=== PATIENT | male | born 1965 | race Hispanic/Latino ===

== ENCOUNTER → 2023-07-26 | Outpatient (CLI) | payer OTHER | END | disposition home or self-care (01) | LOC: RAH 11:19 | PROVIDERS: ATTEND Physician Assistant | DX: S46.012A Strain of muscle(s) and tendon(s) of the rotator cuff of left shoulder, initial encounter (principal); M19.012 Primary osteoarthritis, left shoulder; X58.XXXA Exposure to other specified factors, initial encounter; Y93.89 Activity, other specified; Y92.89 Other specified places as the place of occurrence of the external cause; Y99.8 Other external cause status | CPT/HCPCS: 73221 ==

== ENCOUNTER 2023-11-08 06:06 | Day surgery (SDC) | payer OTHER, MEDICARE ==
[~2023-11-08] VITALS: Ht 182.9 cm; Wt 84.8 kg
[2023-11-08] VITALS (11 sets, daily range): BP systolic 131–159; BP diastolic 84–92; PULSE 76–89; RESP 14–16
[2023-11-08] MEDS: 0.9%NACL 1000ML 1,000 ML IV ONE (06:33)
[2023-11-08] MEDS ORDERED: DULA0.75 SQ (06:56)
[2023-11-08] MEDS ORDERED: DICY20TA3 PO (06:56)
[2023-11-08] MEDS ORDERED: METF-527 PO (06:56)
[2023-11-08] MEDS ORDERED: INSLAN SQ (06:56)
[2023-11-08] MEDS ORDERED: IBUP-2071 PO (06:56)
[2023-11-08] MEDS ORDERED: ATOR40TA69 PO (06:56)
[2023-11-08] MEDS ORDERED: EMPA25TA PO (06:56)
[2023-11-08] MEDS ORDERED: LIDOCAINE HCL 1% 20 ML VIAL ONE (07:07)
[2023-11-08] MEDS ORDERED: PROPOFOL 10 MG/ML 20ML VIAL IV ONE ×3 (07:07→07:29)
== END 2023-11-08 08:45 | disposition home or self-care (01) ==
LOC: ENDO 06:06 → DAH 06:06 → ENDO 08:45
PROVIDERS: ATTEND Internal Medicine Gastroenterology
DX: R93.3 Abnormal findings on diagnostic imaging of other parts of digestive tract (principal); K85.90 Acute pancreatitis without necrosis or infection, unspecified; K80.20 Calculus of gallbladder without cholecystitis without obstruction; K29.50 Unspecified chronic gastritis without bleeding; R93.5 Abnormal findings on diagnostic imaging of other abdominal regions, including retroperitoneum; K86.9 Disease of pancreas, unspecified; I10 Essential (primary) hypertension; E78.00 Pure hypercholesterolemia, unspecified; F41.9 Anxiety disorder, unspecified; F32.A Depression, unspecified; E11.40 Type 2 diabetes mellitus with diabetic neuropathy, unspecified; K57.30 Diverticulosis of large intestine without perforation or abscess without bleeding; E66.01 Morbid (severe) obesity due to excess calories; Z68.38 Body mass index [BMI] 38.0-38.9, adult; Z79.4 Long term (current) use of insulin; Z79.899 Other long term (current) drug therapy
CPT/HCPCS: 43259; 82948 ×2; 43239; J7030 ×2; J2704 ×3; A4620; A4215 ×2; A4223; A7002; A4222; A4221; A4663; A4606; J3490